=== PATIENT | female | born 1955 | race Caucasian/White ===

== ENCOUNTER 2018-01-03 15:42 | Emergency (ER) | payer OTHER ==
[2018-01-03] MEDS: LIDOCAINE 5% PATCH TD (17:14)
[2018-01-03] MEDS: ACETAMINOPHEN 500 MG TAB PO ×2 (17:20→17:22)
[2018-01-03] MEDS: traMADol 50 MG TAB PO (18:18)
[2018-01-03 19:03] LABS: TROPONIN-I < 0.012 ng/ml (0.00-0.12)
== END 2018-01-03 19:58 | disposition home or self-care (01) ==
LOC: FTE 15:42
DX: M25.552 Pain in left hip (principal); I10 Essential (primary) hypertension; J45.909 Unspecified asthma, uncomplicated; Z96.651 Presence of right artificial knee joint
CPT/HCPCS: 36415; 73510; 84484; 93005; 99285-25